=== PATIENT | male | born 1960 | race Hispanic/Latino ===

== ENCOUNTER 2021-06-04 23:15 | Inpatient (IN) | payer MEDICARE ==
[2021-06-04] MEDS ORDERED: Diltiazem 125 MG/25 ML ONE (23:23)
[2021-06-05 00:08] LABS: #Basophils 0.1 10x3/uL (0.0-0.2); #Eosinphils 0.5 10x3/uL (0.0-0.5); #Monocytes 1.3 10x3/uL (0.0-1.1); #Neutrophils 6.9 10x3/uL (1.5-8.4); %Eosinophils 4.5 % (0.0-6.0); %Lymphocytes 22.2 % (18.0-47.0); %Monocytes 11.2 % (0.0-10.0); %Neutrophils 60.4 % (40.0-75.0); Hemoglobin 12.9 g/dL (13.5-17.5); Mean Corpuscular HGB CONC 32.7 g/dL (32.0-36.0); Mean Corpuscular Hemoglobin 29.9 pg (27.0-33.0); Mean Corpuscular Volume 91.4 fl (81.2-95.1); Mean Platelet Volume 11.6 fl (7.4-10.4); Platelet Count 241 10x3/uL (150-450); Red Blood Cell (RBC) Count 4.32 10x6/uL (4.32-5.72); White Blood Cell (WBC) Count 11.4 10x3/uL (3.5-10.5)
[2021-06-05 00:12] LABS: ALT (SGPT) 16 U/L (8-55); AST (SGOT) 23 U/L (5-34); Albumin 3.4 g/dL (3.5-5.0); Alkaline Phosphatase 94 U/L (40-110); Anion Gap 18 mmol/L (10-20); BUN (Urea Nitrogen) 39 mg/dL (8.4-25.7); Bilirubin, Total 0.4 mg/dL (0.2-1.2); Calc. Creatinine Clearance 0 mL/min (70-130); Calcium 9.3 mg/dL (7.8-10.44); Carbon Dioxide 17 mmol/L (22-29); Chloride 112 mmol/L (98-107); Globulin 2.8 g/dL (2.4-3.5); Glucose 289 mg/dL (70-105); Potassium 3.5 mmol/L (3.5-5.1); Protein, Total 6.2 g/dL (6.0-8.3); Sodium 143 mmol/L (136-145)
[2021-06-05] MEDS ORDERED: Amiodarone In Dextrose 200 ML ONE (00:38)
[2021-06-05 00:39] LABS: CKMB 3.1 ng/mL (0-6.6)
[2021-06-05] MEDS ORDERED: Calcium Carbonate 500 MG ChewTAB PO PRN (00:52)
[2021-06-05] MEDS ORDERED: Guaifenesin DM 100-10/5 ML UDCUP PO PRN (00:52)
[2021-06-05] MEDS ORDERED: Acetaminophen 325 MG TAB PO PRN (00:52)
[2021-06-05] MEDS ORDERED: Senokot S 8.6-50 MG TAB PO PRN (00:52)
[2021-06-05] MEDS ORDERED: Dextrose 5% in Water 1,000 ML IV PRN (00:52)
[2021-06-05] MEDS ORDERED: Dextrose 50% Abboject 50 ML SYRINGE SLOW IVP PRN (00:52)
[2021-06-05 01:25] LABS: Hemoglobin 12.8 g/dL (13.5-17.5); Platelet Count 224 10x3/uL (150-450)
[2021-06-05 01:37] LABS: INR-International Normal Ratio 0.9; PTT 23.9 sec (22.0-33.0); Prothrombin Time 10.3 sec (9.5-12.1)
[2021-06-05] MEDS ORDERED: Metoprolol Tartrate 5 MG/5 ML VIAL IVP PRN (01:41)
[2021-06-05] MEDS ORDERED: Amiodarone 450 MG in Dextrose 5% in Water 250 ML IVPB SCH (01:45)
[2021-06-05] MEDS ORDERED: Furosemide 20 MG/2 ML VIAL SLOW IVP SCH (03:00)
[2021-06-05] MEDS ORDERED: Potassium Chloride 20 MEQ TAB PO SCH ×2 (03:00→04:00)
[2021-06-05] MEDS: Heparin 25,000 units/D5W 500 ML IVPB SCH (03:17)
[2021-06-05] MEDS: Heparin 10,000 UNITS/ 10 ML VIAL SLOW IVP SCH (03:23)
[2021-06-05] MEDS ORDERED: FLU VACC QS2021-22(6MOS UP)/PF 60 MCG/0.5 ML SYRINGE IM ONE (03:45)
[2021-06-05 04:14] LABS: SARS-CoV-2 NAA Rapid Test Not Detected (NotDetected)
[2021-06-05 04:21] LABS: Bilirubin Neg (Negative); Blood, Urine 250 (Negative); Clarity Cloudy (Clear); Glucose, Urine (Dipstick) >=1000 mg/dL (Negative); Ketone, Urine Negative (Negative); Leukocyte Negative (Negative); Nitrite Negative (Negative); Protein, Urine (Dipstick) 500 mg/dl (Neg-Trace); Urobilinogen Normal mg/dL (Less than 2)
[2021-06-05] MEDS: HumaLOG 300 UNITS/3 ML VIAL SC PRN ×4 (04:39→22:07)
[2021-06-05 04:57] LABS: Bacteria/HPF 4+ HPF (None Seen); RBC/HPF 0-3 HPF (0-3); Squamous Epithelial 0-3 HPF (0-3); Transitional Epithelial 0-3 HPF (None Seen)
[2021-06-05] MEDS: Amiodarone In Dextrose 200 ML IVPB SCH ×2 (05:49→17:02)
[2021-06-05 05:55] LABS: #Basophils 0.1 10x3/uL (0.0-0.2); #Eosinphils 0.2 10x3/uL (0.0-0.5); #Monocytes 0.9 10x3/uL (0.0-1.1); #Neutrophils 9.5 10x3/uL (1.5-8.4); %Basophils 0.5 % (0.0-2.0); %Eosinophils 1.2 % (0.0-6.0); %Lymphocytes 11.5 % (18.0-47.0); %Monocytes 7.7 % (0.0-10.0); %Neutrophils 78.5 % (40.0-75.0); Hemoglobin 12.6 g/dL (13.5-17.5); Mean Corpuscular HGB CONC 32.5 g/dL (32.0-36.0); Mean Corpuscular Hemoglobin 29.6 pg (27.0-33.0); Mean Corpuscular Volume 91.3 fl (81.2-95.1); Mean Platelet Volume 11.6 fl (7.4-10.4); Platelet Count 229 10x3/uL (150-450); RBC Distribution Width 15.1 % (11.5-14.5); Red Blood Cell (RBC) Count 4.25 10x6/uL (4.32-5.72); White Blood Cell (WBC) Count 12.1 10x3/uL (3.5-10.5)
[2021-06-05 06:14] LABS: ALT (SGPT) 22 U/L (8-55); AST (SGOT) 92 U/L (5-34); Albumin 3.3 g/dL (3.5-5.0); Alkaline Phosphatase 94 U/L (40-110); Anion Gap 17 mmol/L (10-20); BUN (Urea Nitrogen) 37 mg/dL (8.4-25.7); Bilirubin, Total 0.3 mg/dL (0.2-1.2); Calc. Creatinine Clearance 24 mL/min (70-130); Calcium 9.5 mg/dL (7.8-10.44); Carbon Dioxide 17 mmol/L (22-29); Chloride 113 mmol/L (98-107); Glucose 261 mg/dL (70-105); Potassium 3.8 mmol/L (3.5-5.1); Protein, Total 6.3 g/dL (6.0-8.3); Sodium 143 mmol/L (136-145)
[2021-06-05 06:26] LABS: CKMB 70.1 ng/mL (0-6.6)
[2021-06-05] MEDS: hydrALAZINE 25 MG TAB PO SCH ×3 (08:51→16:45)
[2021-06-05] MEDS: Cholecalciferol 1,000 UNITS (25 MCG) TAB PO SCH (08:51)
[2021-06-05] MEDS: Sevelamer Carbonate 800 MG TAB PO SCH ×3 (08:51→16:45)
[2021-06-05] MEDS: Famotidine 20 MG TAB PO SCH (08:53)
[2021-06-05] MEDS: Carvedilol 3.125 MG TAB PO SCH ×2 (08:53→16:46)
[2021-06-05] MEDS: Fenofibrate Nanocrystallized 145 MG TAB PO SCH (08:56)
[2021-06-05] MEDS: Tamsulosin HCl 0.4 MG CAP PO SCH (08:59)
[2021-06-05] MEDS: Torsemide 20 MG TAB PO SCH ×2 (09:00→14:10)
[2021-06-05] MEDS: Gabapentin 300 MG CAP PO SCH ×2 (09:01→21:03)
[2021-06-05 09:45] LABS: CKMB 74.3 ng/mL (0-6.6)
[2021-06-05] MEDS: Lantus 1000 UNITS/10 ML VIAL SC SCH (21:05)
[2021-06-05] MEDS: Atorvastatin Calcium 40 MG TAB PO SCH (21:07)
[2021-06-06] MEDS: Heparin 10,000 UNITS/ 10 ML VIAL SLOW IVP SCH (00:48)
[2021-06-06] MEDS: Heparin 25,000 units/D5W 500 ML IVPB SCH ×2 (01:42→18:00)
[2021-06-06] MEDS: Amiodarone In Dextrose 200 ML IVPB SCH ×2 (06:10→18:02)
[2021-06-06 06:40] LABS: Hemoglobin 12.5 g/dL (13.5-17.5); Mean Corpuscular Hemoglobin 29.6 pg (27.0-33.0); Mean Corpuscular Volume 89.6 fl (81.2-95.1); Mean Platelet Volume 11.6 fl (7.4-10.4); Platelet Count 210 10x3/uL (150-450); RBC Distribution Width 15.1 % (11.5-14.5); Red Blood Cell (RBC) Count 4.23 10x6/uL (4.32-5.72)
[2021-06-06 06:47] LABS: Anion Gap 13 mmol/L (10-20); Calcium 9.1 mg/dL (7.8-10.44); Carbon Dioxide 21 mmol/L (22-29); Chloride 105 mmol/L (98-107); Potassium 3.4 mmol/L (3.5-5.1); Sodium 136 mmol/L (136-145)
[2021-06-06 07:00] LABS: BUN (Urea Nitrogen) 34 mg/dL (8.4-25.7); Calc. Creatinine Clearance 23 mL/min (70-130); Glucose 113 mg/dL (70-105)
[2021-06-06 07:01] LABS: PTT 86.7 sec (22.0-33.0)
[2021-06-06] MEDS: hydrALAZINE 25 MG TAB PO SCH ×3 (08:18→16:15)
[2021-06-06] MEDS: Famotidine 20 MG TAB PO SCH (08:18)
[2021-06-06] MEDS: Sevelamer Carbonate 800 MG TAB PO SCH ×3 (08:19→18:00)
[2021-06-06] MEDS: Tamsulosin HCl 0.4 MG CAP PO SCH (08:19)
[2021-06-06] MEDS: Carvedilol 3.125 MG TAB PO SCH ×2 (08:19→16:15)
[2021-06-06] MEDS: Cholecalciferol 1,000 UNITS (25 MCG) TAB PO SCH (08:19)
[2021-06-06] MEDS: Torsemide 20 MG TAB PO SCH ×2 (08:26→16:15)
[2021-06-06] MEDS: Fenofibrate Nanocrystallized 145 MG TAB PO SCH (08:28)
[2021-06-06] MEDS ORDERED: Potassium Chloride 20 MEQ TAB PO SCH ×2 (09:30→20:30)
[2021-06-06] MEDS: Gabapentin 300 MG CAP PO SCH ×2 (10:17→20:43)
[2021-06-06] MEDS: HumaLOG 300 UNITS/3 ML VIAL SC PRN ×2 (10:47→12:34)
[2021-06-06 12:49] LABS: PTT 76.1 sec (22.0-33.0)
[2021-06-06] MEDS: Atorvastatin Calcium 40 MG TAB PO SCH (20:43)
[2021-06-06] MEDS: Lantus 1000 UNITS/10 ML VIAL SC SCH (20:44)
[2021-06-06] MEDS: Amiodarone 200 MG TAB PO SCH (21:57)
[2021-06-07 04:22] LABS: Hemoglobin 11.3 g/dL (13.5-17.5); Platelet Count 198 10x3/uL (150-450)
[2021-06-07 04:41] LABS: PTT 95.7 sec (22.0-33.0)
[2021-06-07 10:05] LABS: ALT (SGPT) 32 U/L (8-55); AST (SGOT) 101 U/L (5-34); Albumin 3.3 g/dL (3.5-5.0); Alkaline Phosphatase 45 U/L (40-110); Anion Gap 17 mmol/L (10-20); BUN (Urea Nitrogen) 34 mg/dL (8.4-25.7); Bilirubin, Total 0.4 mg/dL (0.2-1.2); Calc. Creatinine Clearance 22 mL/min (70-130); Calcium 9.4 mg/dL (7.8-10.44); Carbon Dioxide 20 mmol/L (22-29); Chloride 106 mmol/L (98-107); Globulin 3.1 g/dL (2.4-3.5); Glucose 100 mg/dL (70-105); Protein, Total 6.4 g/dL (6.0-8.3); Sodium 139 mmol/L (136-145)
[2021-06-07] MEDS: Sevelamer Carbonate 800 MG TAB PO SCH ×3 (10:08→17:32)
[2021-06-07] MEDS: Fenofibrate Nanocrystallized 145 MG TAB PO SCH (10:08)
[2021-06-07] MEDS: Torsemide 20 MG TAB PO SCH ×2 (10:08→17:32)
[2021-06-07] MEDS: hydrALAZINE 25 MG TAB PO SCH ×3 (10:09→17:33)
[2021-06-07] MEDS: Tamsulosin HCl 0.4 MG CAP PO SCH (10:09)
[2021-06-07] MEDS: Cholecalciferol 1,000 UNITS (25 MCG) TAB PO SCH (10:09)
[2021-06-07] MEDS: Carvedilol 3.125 MG TAB PO SCH ×2 (10:09→17:32)
[2021-06-07] MEDS: Famotidine 20 MG TAB PO SCH (10:09)
[2021-06-07] MEDS: Gabapentin 300 MG CAP PO SCH ×2 (10:09→22:12)
[2021-06-07] MEDS: Amiodarone 200 MG TAB PO SCH ×2 (10:12→22:13)
[2021-06-07 11:02] LABS: Anion Gap 14 mmol/L (10-20); BUN (Urea Nitrogen) 34 mg/dL (8.4-25.7); Calc. Creatinine Clearance 21 mL/min (70-130); Calcium 9.6 mg/dL (7.8-10.44); Carbon Dioxide 23 mmol/L (22-29); Chloride 105 mmol/L (98-107); Glucose 129 mg/dL (70-105); Potassium 3.8 mmol/L (3.5-5.1); Sodium 138 mmol/L (136-145)
[2021-06-07] MEDS: Apixaban 5 MG TAB PO SCH (22:08)
[2021-06-07] MEDS: Atorvastatin Calcium 40 MG TAB PO SCH (22:12)
[2021-06-07] MEDS: Lantus 1000 UNITS/10 ML VIAL SC SCH (22:13)
[2021-06-07 23:38] LABS: Bilirubin Neg (Negative); Blood, Urine 250 (Negative); Clarity Cloudy (Clear); Glucose, Urine (Dipstick) 100 mg/dL (Negative); Ketone, Urine Negative (Negative); Leukocyte 100 (Negative); Nitrite Negative (Negative); Protein, Urine (Dipstick) 500 mg/dl (Neg-Trace); Urobilinogen Normal mg/dL (Less than 2)
[2021-06-08 08:47] LABS: Hemoglobin 11.3 g/dL (13.5-17.5); Mean Corpuscular HGB CONC 32.8 g/dL (32.0-36.0); Mean Corpuscular Hemoglobin 29.5 pg (27.0-33.0); Mean Corpuscular Volume 89.8 fl (81.2-95.1); Mean Platelet Volume 11.5 fl (7.4-10.4); Platelet Count 211 10x3/uL (150-450); RBC Distribution Width 15.3 % (11.5-14.5); Red Blood Cell (RBC) Count 3.83 10x6/uL (4.32-5.72); White Blood Cell (WBC) Count 10.6 10x3/uL (3.5-10.5)
[2021-06-08 08:51] LABS: Anion Gap 14 mmol/L (10-20); BUN (Urea Nitrogen) 43 mg/dL (8.4-25.7); Calc. Creatinine Clearance 18 mL/min (70-130); Calcium 9.4 mg/dL (7.8-10.44); Carbon Dioxide 23 mmol/L (22-29); Chloride 107 mmol/L (98-107); Glucose 89 mg/dL (70-105); Potassium 3.8 mmol/L (3.5-5.1); Sodium 140 mmol/L (136-145)
[2021-06-08] MEDS ORDERED: Apixaban 2.5 MG TAB PO SCH ×2 (09:15→21:00)
[2021-06-08] MEDS: Apixaban 5 MG TAB PO SCH (09:16)
[2021-06-08] MEDS: Gabapentin 300 MG CAP PO SCH ×2 (09:19→21:04)
[2021-06-08] MEDS: Sevelamer Carbonate 800 MG TAB PO SCH ×3 (09:20→16:11)
[2021-06-08] MEDS: hydrALAZINE 25 MG TAB PO SCH ×3 (09:20→16:11)
[2021-06-08] MEDS: Carvedilol 3.125 MG TAB PO SCH ×2 (09:20→16:11)
[2021-06-08] MEDS: Famotidine 20 MG TAB PO SCH (09:21)
[2021-06-08] MEDS: Cholecalciferol 1,000 UNITS (25 MCG) TAB PO SCH (09:23)
[2021-06-08] MEDS: Amiodarone 200 MG TAB PO SCH ×2 (09:23→21:04)
[2021-06-08] MEDS: Torsemide 20 MG TAB PO SCH ×2 (09:24→14:57)
[2021-06-08] MEDS: Fenofibrate Nanocrystallized 145 MG TAB PO SCH (09:24)
[2021-06-08] MEDS: Tamsulosin HCl 0.4 MG CAP PO SCH (09:24)
[2021-06-08] MEDS: HumaLOG 300 UNITS/3 ML VIAL SC PRN (12:36)
[2021-06-08] MEDS: Atorvastatin Calcium 40 MG TAB PO SCH (21:03)
[2021-06-08] MEDS: Lantus 1000 UNITS/10 ML VIAL SC SCH (21:04)
[2021-06-09 01:24] LABS: Hemoglobin 11.6 g/dL (13.5-17.5); Platelet Count 215 10x3/uL (150-450)
[2021-06-09 05:28] LABS: Anion Gap 16 mmol/L (10-20); BUN (Urea Nitrogen) 53 mg/dL (8.4-25.7); Calc. Creatinine Clearance 16 mL/min (70-130); Carbon Dioxide 21 mmol/L (22-29); Chloride 106 mmol/L (98-107); Glucose 93 mg/dL (70-105); Potassium 4.1 mmol/L (3.5-5.1); Sodium 139 mmol/L (136-145)
[2021-06-09 05:39] LABS: Hep B Surf Ag Non-Reactive S/CO (NonReactive)
[2021-06-09 05:44] LABS: HBSAg Index 0.19 S/CO (0-0.99)
[2021-06-09] MEDS ORDERED: Tuberculin PPD 0.1 ML VIAL I-DERMAL SCH ×2 (10:00→11:30)
[2021-06-09] MEDS: Sevelamer Carbonate 800 MG TAB PO SCH ×4 (10:56→20:49)
[2021-06-09] MEDS: Famotidine 20 MG TAB PO SCH (10:56)
[2021-06-09] MEDS: Tamsulosin HCl 0.4 MG CAP PO SCH (10:56)
[2021-06-09] MEDS: Carvedilol 3.125 MG TAB PO SCH ×2 (10:56→18:37)
[2021-06-09] MEDS: hydrALAZINE 25 MG TAB PO SCH ×3 (10:56→18:37)
[2021-06-09] MEDS: Torsemide 20 MG TAB PO SCH (10:57)
[2021-06-09] MEDS: Fenofibrate Nanocrystallized 145 MG TAB PO SCH (10:57)
[2021-06-09] MEDS: Cholecalciferol 1,000 UNITS (25 MCG) TAB PO SCH (10:57)
[2021-06-09] MEDS: Gabapentin 300 MG CAP PO SCH ×2 (10:57→20:49)
[2021-06-09] MEDS: Amiodarone 200 MG TAB PO SCH ×2 (10:57→20:50)
[2021-06-09 12:43] LABS: HBSAB Concentration Less than 8.00 mIU/mL; Hep B Core Total Ab Non-Reactive (NonReactive); Hep B Core Total Index 0.02 S/CO (0-0.79); Hep B Surf AB Non-Reactive (NonReactive); Hep C IgG Ab Non-Reactive (NonReactive); Hep C Index 0.05 S/CO (0-0.79)
[2021-06-09] MEDS ORDERED: EPINEPHrine 1 MG/ML AMP ONE (14:10)
[2021-06-09] MEDS ORDERED: Bupivacaine PF 0.5% 30 ML VIAL ONE (14:10)
[2021-06-09] MEDS ORDERED: Midazolam HCl 2 mg/2 ml Vial ONE (14:56)
[2021-06-09] MEDS ORDERED: CEFAZOLIN 1 GM VIAL ONE (15:02)
[2021-06-09] MEDS ORDERED: HYDROcodone/Acetaminophen 5/325 mg Tablet PO PRN (16:39)
[2021-06-09] MEDS: Atorvastatin Calcium 40 MG TAB PO SCH (20:49)
[2021-06-09] MEDS: Lantus 1000 UNITS/10 ML VIAL SC SCH (20:52)
[2021-06-10 00:17] VITALS: BMI 30.8
[2021-06-10] MEDS: HumaLOG 300 UNITS/3 ML VIAL SC PRN ×2 (05:15→11:41)
[2021-06-10 06:32] LABS: Anion Gap 16 mmol/L (10-20); BUN (Urea Nitrogen) 46 mg/dL (8.4-25.7); Calc. Creatinine Clearance 18 mL/min (70-130); Calcium 8.9 mg/dL (7.8-10.44); Carbon Dioxide 23 mmol/L (22-29); Chloride 107 mmol/L (98-107); Glucose 153 mg/dL (70-105); Potassium 4.7 mmol/L (3.5-5.1); Sodium 141 mmol/L (136-145)
[2021-06-10] MEDS: Tamsulosin HCl 0.4 MG CAP PO SCH (09:13)
[2021-06-10] MEDS: Famotidine 20 MG TAB PO SCH (09:13)
[2021-06-10] MEDS: Sevelamer Carbonate 800 MG TAB PO SCH ×3 (09:13→17:17)
[2021-06-10] MEDS: Fenofibrate Nanocrystallized 145 MG TAB PO SCH (09:13)
[2021-06-10] MEDS: Gabapentin 300 MG CAP PO SCH (09:13)
[2021-06-10] MEDS: Cholecalciferol 1,000 UNITS (25 MCG) TAB PO SCH (09:13)
[2021-06-10] MEDS: Amiodarone 200 MG TAB PO SCH ×2 (09:13→21:56)
[2021-06-10] MEDS: Carvedilol 3.125 MG TAB PO SCH ×2 (09:14→17:16)
[2021-06-10] MEDS: hydrALAZINE 25 MG TAB PO SCH ×3 (09:14→17:16)
[2021-06-10] MEDS: Atorvastatin Calcium 40 MG TAB PO SCH (21:56)
[2021-06-10] MEDS: Losartan 25 MG TAB PO SCH (21:56)
[2021-06-10] MEDS: Apixaban 2.5 MG TAB PO SCH (21:57)
[2021-06-10] MEDS: Lantus 1000 UNITS/10 ML VIAL SC SCH (21:59)
[2021-06-11 01:26] LABS: Hemoglobin 11.2 g/dL (13.5-17.5); Platelet Count 193 10x3/uL (150-450)
[2021-06-11 06:17] LABS: Anion Gap 14 mmol/L (10-20); BUN (Urea Nitrogen) 32 mg/dL (8.4-25.7); Calc. Creatinine Clearance 24 mL/min (70-130); Calcium 8.6 mg/dL (7.8-10.44); Carbon Dioxide 24 mmol/L (22-29); Chloride 105 mmol/L (98-107); Glucose 117 mg/dL (70-105); Sodium 139 mmol/L (136-145)
[2021-06-11] MEDS: Tamsulosin HCl 0.4 MG CAP PO SCH (08:42)
[2021-06-11] MEDS: Famotidine 20 MG TAB PO SCH (08:42)
[2021-06-11] MEDS: Amiodarone 200 MG TAB PO SCH ×2 (08:42→21:58)
[2021-06-11] MEDS: Gabapentin 300 MG CAP PO SCH (08:43)
[2021-06-11] MEDS: Cholecalciferol 1,000 UNITS (25 MCG) TAB PO SCH (08:43)
[2021-06-11] MEDS: Apixaban 2.5 MG TAB PO SCH ×2 (08:43→21:58)
[2021-06-11] MEDS: Sevelamer Carbonate 800 MG TAB PO SCH ×3 (08:43→17:47)
[2021-06-11] MEDS: hydrALAZINE 25 MG TAB PO SCH ×3 (08:43→17:47)
[2021-06-11] MEDS: Carvedilol 3.125 MG TAB PO SCH ×2 (08:43→17:47)
[2021-06-11] MEDS: Fenofibrate Nanocrystallized 145 MG TAB PO SCH (08:44)
[2021-06-11] MEDS ORDERED: READ PPD TEST SITE PO SCH ×2 (09:00)
[2021-06-11] MEDS: HumaLOG 300 UNITS/3 ML VIAL SC PRN (18:19)
[2021-06-11] MEDS: Losartan 25 MG TAB PO SCH (21:59)
[2021-06-11] MEDS: Atorvastatin Calcium 40 MG TAB PO SCH (21:59)
[2021-06-11] MEDS: Lantus 1000 UNITS/10 ML VIAL SC SCH (22:00)
[2021-06-12 07:02] LABS: #Basophils 0.1 10x3/uL (0.0-0.2); #Eosinphils 0.4 10x3/uL (0.0-0.5); #Monocytes 1.2 10x3/uL (0.0-1.1); #Neutrophils 6.1 10x3/uL (1.5-8.4); %Eosinophils 3.9 % (0.0-6.0); %Lymphocytes 14.7 % (18.0-47.0); %Monocytes 12.7 % (0.0-10.0); %Neutrophils 67.1 % (40.0-75.0); Hemoglobin 11.2 g/dL (13.5-17.5); Mean Corpuscular HGB CONC 32.5 g/dL (32.0-36.0); Mean Corpuscular Hemoglobin 29.4 pg (27.0-33.0); Mean Corpuscular Volume 90.6 fl (81.2-95.1); Mean Platelet Volume 11.2 fl (7.4-10.4); Platelet Count 217 10x3/uL (150-450); RBC Distribution Width 15.2 % (11.5-14.5); Red Blood Cell (RBC) Count 3.81 10x6/uL (4.32-5.72)
[2021-06-12 07:43] LABS: ALT (SGPT) 9 U/L (8-55); AST (SGOT) 20 U/L (5-34); Albumin 3.1 g/dL (3.5-5.0); Alkaline Phosphatase 60 U/L (40-110); Anion Gap 17 mmol/L (10-20); BUN (Urea Nitrogen) 52 mg/dL (8.4-25.7); Bilirubin, Total 0.4 mg/dL (0.2-1.2); Calc. Creatinine Clearance 16 mL/min (70-130); Calcium 8.7 mg/dL (7.8-10.44); Carbon Dioxide 21 mmol/L (22-29); Chloride 108 mmol/L (98-107); Globulin 2.4 g/dL (2.4-3.5); Glucose 164 mg/dL (70-105); Magnesium 2.2 mg/dL (1.6-2.6); Potassium 4.3 mmol/L (3.5-5.1); Protein, Total 5.5 g/dL (6.0-8.3); Sodium 142 mmol/L (136-145)
[2021-06-12] MEDS: hydrALAZINE 25 MG TAB PO SCH ×3 (08:48→17:23)
[2021-06-12] MEDS: Amiodarone 200 MG TAB PO SCH ×2 (08:48→21:25)
[2021-06-12] MEDS: Carvedilol 3.125 MG TAB PO SCH ×2 (08:48→17:23)
[2021-06-12] MEDS: Sevelamer Carbonate 800 MG TAB PO SCH ×3 (08:48→17:23)
[2021-06-12] MEDS: Cholecalciferol 1,000 UNITS (25 MCG) TAB PO SCH (08:48)
[2021-06-12] MEDS: Gabapentin 300 MG CAP PO SCH (08:48)
[2021-06-12] MEDS: Apixaban 2.5 MG TAB PO SCH ×2 (08:48→21:25)
[2021-06-12] MEDS: Famotidine 20 MG TAB PO SCH (08:48)
[2021-06-12] MEDS: Tamsulosin HCl 0.4 MG CAP PO SCH (08:48)
[2021-06-12] MEDS: HumaLOG 300 UNITS/3 ML VIAL SC PRN ×2 (11:41→17:23)
[2021-06-12] MEDS: Atorvastatin Calcium 40 MG TAB PO SCH (21:26)
[2021-06-12] MEDS: Losartan 25 MG TAB PO SCH (21:26)
[2021-06-12] MEDS: Lantus 1000 UNITS/10 ML VIAL SC SCH (21:26)
[2021-06-12 22:38] LABS: SARS-CoV-2 PCR by NAA Not Detected (NotDetected)
[2021-06-13 01:01] LABS: Hemoglobin 11.1 g/dL (13.5-17.5); Platelet Count 221 10x3/uL (150-450)
[2021-06-13] MEDS: Carvedilol 3.125 MG TAB PO SCH ×2 (07:50→18:10)
[2021-06-13] MEDS: hydrALAZINE 25 MG TAB PO SCH ×3 (07:50→18:25)
[2021-06-13] MEDS: Sevelamer Carbonate 800 MG TAB PO SCH ×3 (07:50→18:11)
[2021-06-13] MEDS: Famotidine 20 MG TAB PO SCH (07:50)
[2021-06-13] MEDS: Amiodarone 200 MG TAB PO SCH (07:50)
[2021-06-13] MEDS: Apixaban 2.5 MG TAB PO SCH ×2 (07:50→20:07)
[2021-06-13] MEDS: Cholecalciferol 1,000 UNITS (25 MCG) TAB PO SCH (07:51)
[2021-06-13] MEDS: Gabapentin 300 MG CAP PO SCH (07:51)
[2021-06-13] MEDS: Tamsulosin HCl 0.4 MG CAP PO SCH (07:51)
[2021-06-13 13:43] LABS: Anion Gap 16 mmol/L (10-20); BUN (Urea Nitrogen) 67 mg/dL (8.4-25.7); Calc. Creatinine Clearance 16 mL/min (70-130); Calcium 8.8 mg/dL (7.8-10.44); Carbon Dioxide 20 mmol/L (22-29); Chloride 108 mmol/L (98-107); Glucose 128 mg/dL (70-105); Potassium 4.2 mmol/L (3.5-5.1); Sodium 140 mmol/L (136-145)
[2021-06-13] MEDS ORDERED: Heparin 10,000 UNITS/ 10 ML VIAL SLOW IVP PRN (17:05)
[2021-06-13] MEDS: Losartan 25 MG TAB PO SCH (19:54)
[2021-06-13] MEDS: Atorvastatin Calcium 40 MG TAB PO SCH (20:06)
[2021-06-13] MEDS: Lantus 1000 UNITS/10 ML VIAL SC SCH (20:07)
[2021-06-14 06:34] LABS: Anion Gap 16 mmol/L (10-20); BUN (Urea Nitrogen) 36 mg/dL (8.4-25.7); Calc. Creatinine Clearance 0 mL/min (70-130); Calcium 8.4 mg/dL (7.8-10.44); Carbon Dioxide 24 mmol/L (22-29); Chloride 104 mmol/L (98-107); Glucose 89 mg/dL (70-105); Potassium 4.2 mmol/L (3.5-5.1); Sodium 140 mmol/L (136-145)
[2021-06-14] MEDS ORDERED: Amiodarone 200 MG TAB PO SCH (09:00)
[2021-06-14] MEDS: Sevelamer Carbonate 800 MG TAB PO SCH ×2 (09:47→12:27)
[2021-06-14] MEDS: Gabapentin 300 MG CAP PO SCH (09:48)
[2021-06-14] MEDS: Carvedilol 3.125 MG TAB PO SCH (09:49)
[2021-06-14] MEDS: hydrALAZINE 25 MG TAB PO SCH ×2 (09:50→12:27)
[2021-06-14] MEDS: Apixaban 2.5 MG TAB PO SCH (09:50)
[2021-06-14] MEDS: Famotidine 20 MG TAB PO SCH (09:51)
[2021-06-14] MEDS: Cholecalciferol 1,000 UNITS (25 MCG) TAB PO SCH (09:51)
[2021-06-14] MEDS: Tamsulosin HCl 0.4 MG CAP PO SCH (09:52)
[2021-06-14 12:36] VITALS: BP 99/50; TEMP 98.4
== END 2021-06-14 13:36 | disposition home or self-care (01) | DRG 291 ==
LOC: CSHERS 23:15 → CSHICU 06-05 02:36 → CSHTELE 06-06 17:42
PROVIDERS: ADMIT Student in an Organized Health Care Education/Training Program; ATTEND Internal Medicine
PROC: 0JH63XZ Insertion of Tunneled Vascular Access Device into Chest Subcutaneous Tissue and Fascia, Percutaneous Approach (ICD-10-PCS; principal; 2021-06-09)
PROC: 02HV33Z Insertion of Infusion Device into Superior Vena Cava, Percutaneous Approach (ICD-10-PCS; 2021-06-09)
PROC: B548ZZA Ultrasonography of Superior Vena Cava, Guidance (ICD-10-PCS; 2021-06-09)
PROC: 5A1D70Z Performance of Urinary Filtration, Intermittent, Less than 6 Hours Per Day (ICD-10-PCS; 2021-06-10)
DX: I13.2 Hypertensive heart and chronic kidney disease with heart failure and with stage 5 chronic kidney disease, or end stage renal disease (principal); I50.23 Acute on chronic systolic (congestive) heart failure; N18.6 End stage renal disease; T82.199A Other mechanical complication of unspecified cardiac device, initial encounter; N17.9 Acute kidney failure, unspecified; E87.2 Acidosis; I47.2 Ventricular tachycardia; I48.91 Unspecified atrial fibrillation; Z20.822 Contact with and (suspected) exposure to COVID-19; Z79.01 Long term (current) use of anticoagulants; Z79.4 Long term (current) use of insulin; Z79.899 Other long term (current) drug therapy; Z95.1 Presence of aortocoronary bypass graft; Z89.511 Acquired absence of right leg below knee; Z87.891 Personal history of nicotine dependence; E11.22 Type 2 diabetes mellitus with diabetic chronic kidney disease; G40.909 Epilepsy, unspecified, not intractable, without status epilepticus; E11.51 Type 2 diabetes mellitus with diabetic peripheral angiopathy without gangrene; I25.10 Atherosclerotic heart disease of native coronary artery without angina pectoris; D63.1 Anemia in chronic kidney disease; E78.2 Mixed hyperlipidemia; E11.40 Type 2 diabetes mellitus with diabetic neuropathy, unspecified; E87.6 Hypokalemia; E88.09 Other disorders of plasma-protein metabolism, not elsewhere classified
CPT/HCPCS: 36415; 36416; 71045; 80048; 80053; 81001; 81003; 82553; 83735; 84443; 84484; 85014; 85018; 85025; 85027; 85049; 85610; 85730; 86580; 86704; 86706; 86803; 87340; 90935; 93005; 93010; 93306; 94760; 96365; 96375; C1752; G0257; J0171; J0282; J0690; J1642; J1644; J1815; J1940; J2250; S0020; U0002; U0003; U0005

== ENCOUNTER 2021-08-30 20:03 | Inpatient (IN) | payer MEDICARE ==
[2021-08-30 21:13] LABS: #Basophils 0.1 10x3/uL (0.0-0.2); #Eosinphils 0.2 10x3/uL (0.0-0.5); #Monocytes 1.3 10x3/uL (0.0-1.1); #Neutrophils 8.3 10x3/uL (1.5-8.4); %Basophils 0.7 % (0.0-2.0); %Eosinophils 1.6 % (0.0-6.0); %Lymphocytes 5.3 % (18.0-47.0); %Monocytes 12.5 % (0.0-10.0); %Neutrophils 79.4 % (40.0-75.0); Hemoglobin 11.8 g/dL (13.5-17.5); Mean Corpuscular HGB CONC 33.1 g/dL (32.0-36.0); Mean Corpuscular Hemoglobin 31.6 pg (27.0-33.0); Mean Corpuscular Volume 95.5 fl (81.2-95.1); Platelet Count 213 10x3/uL (150-450); RBC Distribution Width 14.6 % (11.5-14.5); Red Blood Cell (RBC) Count 3.74 10x6/uL (4.32-5.72); White Blood Cell (WBC) Count 10.5 10x3/uL (3.5-10.5)
[2021-08-30 21:29] LABS: ALT (SGPT) 31 U/L (8-55); AST (SGOT) 72 U/L (5-34); Albumin 4.1 g/dL (3.5-5.0); Alkaline Phosphatase 60 U/L (40-110); Anion Gap 14 mmol/L (10-20); BUN (Urea Nitrogen) 37 mg/dL (8.4-25.7); Bilirubin, Total 0.4 mg/dL (0.2-1.2); CK (CPK) 143 U/L (30-200); Calc. Creatinine Clearance 0 mL/min (70-130); Calcium 8.7 mg/dL (7.8-10.44); Carbon Dioxide 26 mmol/L (22-29); Chloride 104 mmol/L (98-107); Globulin 3.3 g/dL (2.4-3.5); Glucose 170 mg/dL (70-105); Magnesium 1.8 mg/dL (1.6-2.6); Potassium 4.6 mmol/L (3.5-5.1); Protein, Total 7.4 g/dL (6.0-8.3); Sodium 139 mmol/L (136-145)
[2021-08-30 21:55] LABS: CKMB 8.4 ng/mL (0-6.6)
[2021-08-30 23:25] LABS: Bilirubin Neg (Negative); Blood, Urine 50 (Negative); Clarity Clear (Clear); Glucose, Urine (Dipstick) 100 mg/dL (Negative); Ketone, Urine Negative (Negative); Leukocyte 25 (Negative); Nitrite Negative (Negative); Protein, Urine (Dipstick) 500 mg/dl (Neg-Trace); Urobilinogen Normal mg/dL (Less than 2)
[2021-08-30 23:41] LABS: RBC/HPF 0-3 HPF (0-3)
[2021-08-30 23:42] LABS: Bacteria/HPF Rare-Few HPF (None Seen); Sperm/HPF Rare HPF (None Seen); Squamous Epithelial 0-3 HPF (0-3)
[2021-08-31] MEDS ORDERED: Nitroglycerin 0.4 MG TAB (25 Tab Bottle) SL PRN (01:05)
[2021-08-31] MEDS ORDERED: Acetaminophen 325 MG TAB PO PRN (01:12)
[2021-08-31] MEDS ORDERED: Apixaban 2.5 MG TAB PO SCH ×2 (01:15→09:00)
[2021-08-31 01:27] LABS: SARS-CoV-2 NAA Rapid Test DETECTED (NotDetected)
[2021-08-31] MEDS ORDERED: Dextrose 50% Abboject 50 ML SYRINGE SLOW IVP PRN (01:44)
[2021-08-31] MEDS ORDERED: Dextrose 5% in Water 1,000 ML IV PRN (01:44)
[2021-08-31 02:06] LABS: Troponin I 6.031 ng/mL (< 0.028)
[2021-08-31] MEDS ORDERED: Apixaban 5 MG TAB ONE (02:23)
[2021-08-31] MEDS ORDERED: Aspirin Chewable 81 MG TAB ONE (02:23)
[2021-08-31] MEDS ORDERED: Dexamethasone 10 MG/ML VIAL ONE (02:23)
[2021-08-31] MEDS ORDERED: Nitroglycerin 2% Ointment 1 INCH/1 GM Packet ONE (02:23)
[2021-08-31] MEDS ORDERED: hydrALAZINE 25 MG TAB ONE ×2 (02:24→10:39)
[2021-08-31] MEDS ORDERED: Atorvastatin Calcium 40 MG TAB PO SCH (03:00)
[2021-08-31] MEDS ORDERED: Furosemide 100 MG/10 ML VIAL SLOW IVP SCH (03:00)
[2021-08-31] MEDS ORDERED: Gabapentin 300 MG CAP PO SCH ×2 (03:00→09:00)
[2021-08-31] MEDS ORDERED: hydrALAZINE 25 MG TAB PO SCH (03:00)
[2021-08-31 03:04] LABS: Hemoglobin 11.3 g/dL (13.5-17.5); Platelet Count 210 10x3/uL (150-450)
[2021-08-31] MEDS ORDERED: Carvedilol 3.125 MG TAB PO SCH (03:15)
[2021-08-31] MEDS ORDERED: Dexamethasone 10 MG/ML VIAL SLOW IVP SCH (03:15)
[2021-08-31] MEDS ORDERED: Heparin 25,000 units/D5W 500 ML ONE (03:38)
[2021-08-31] MEDS ORDERED: Furosemide 100 MG/10 ML VIAL ONE (03:45)
[2021-08-31] MEDS: Heparin 10,000 UNITS/ 10 ML VIAL SLOW IVP SCH (03:46)
[2021-08-31] MEDS: Nitroglycerin 2% Ointment 1 INCH/1 GM Packet TOP SCH ×2 (03:47→21:57)
[2021-08-31] MEDS ORDERED: Carvedilol 3.125 MG TAB ONE ×2 (03:54→10:37)
[2021-08-31] MEDS: Heparin 25,000 units/D5W 500 ML IVPB SCH (04:05)
[2021-08-31 04:38] LABS: #Basophils 0.1 10x3/uL (0.0-0.2); #Eosinphils 0.1 10x3/uL (0.0-0.5); #Monocytes 0.8 10x3/uL (0.0-1.1); #Neutrophils 8.4 10x3/uL (1.5-8.4); %Basophils 0.7 % (0.0-2.0); %Eosinophils 0.6 % (0.0-6.0); %Lymphocytes 4.6 % (18.0-47.0); %Monocytes 8.3 % (0.0-10.0); %Neutrophils 85.4 % (40.0-75.0); Hemoglobin 10.5 g/dL (13.5-17.5); Mean Corpuscular HGB CONC 31.8 g/dL (32.0-36.0); Mean Corpuscular Hemoglobin 30.9 pg (27.0-33.0); Mean Corpuscular Volume 97.1 fl (81.2-95.1); Mean Platelet Volume 11.1 fl (7.4-10.4); Platelet Count 186 10x3/uL (150-450); RBC Distribution Width 14.7 % (11.5-14.5); White Blood Cell (WBC) Count 9.9 10x3/uL (3.5-10.5)
[2021-08-31 04:49] LABS: Anion Gap 16 mmol/L (10-20); BUN (Urea Nitrogen) 41 mg/dL (8.4-25.7); Calc. Creatinine Clearance 0 mL/min (70-130); Calcium 8.6 mg/dL (7.8-10.44); Carbon Dioxide 23 mmol/L (22-29); Chloride 106 mmol/L (98-107); Glucose 126 mg/dL (70-105); Magnesium 1.7 mg/dL (1.6-2.6); Phosphorus 2.5 mg/dL (2.3-4.7); Potassium 4.5 mmol/L (3.5-5.1); Sodium 140 mmol/L (136-145)
[2021-08-31] MEDS ORDERED: Torsemide 20 MG TAB PO SCH (09:00)
[2021-08-31] MEDS ORDERED: Aspirin 81 mg Enteric Coated Tablet PO SCH (09:00)
[2021-08-31 09:46] LABS: PTT 104.7 sec (22.0-33.0)
[2021-08-31] MEDS ORDERED: Famotidine 20 MG TAB ONE (10:35)
[2021-08-31] MEDS ORDERED: Tamsulosin HCl 0.4 MG CAP ONE (10:36)
[2021-08-31] MEDS ORDERED: Zinc Sulfate 220 MG CAP ONE (10:36)
[2021-08-31] MEDS ORDERED: Ascorbic Acid 500 mg Chewable Tablet ONE (10:36)
[2021-08-31] MEDS ORDERED: Gabapentin 300 MG CAP ONE (10:36)
[2021-08-31] MEDS ORDERED: Dexamethasone 20 MG/5 ML VIAL ONE (10:37)
[2021-08-31] MEDS ORDERED: Clopidogrel Bisulfate 75 MG TAB ONE (10:39)
[2021-08-31] MEDS: Ascorbic Acid 500 mg Chewable Tablet PO SCH (10:52)
[2021-08-31] MEDS: hydrALAZINE 25 MG TAB PO SCH (10:52)
[2021-08-31] MEDS: Carvedilol 3.125 MG TAB PO SCH (10:52)
[2021-08-31] MEDS: Clopidogrel Bisulfate 75 MG TAB PO SCH (10:53)
[2021-08-31] MEDS: Famotidine 20 MG TAB PO SCH (10:53)
[2021-08-31] MEDS: Dexamethasone 4 mg/ml Vial SLOW IVP SCH (10:53)
[2021-08-31] MEDS: Zinc Sulfate 220 MG CAP PO SCH (10:56)
[2021-08-31] MEDS: Tamsulosin HCl 0.4 MG CAP PO SCH (10:56)
[2021-08-31] MEDS ORDERED: Heparin 10,000 UNITS/ 10 ML VIAL CATH PRN (11:50)
[2021-08-31] MEDS ORDERED: EPOETIN ALFA-EPBX (ESRD) 3,000 UNIT/ML VIAL IVP PRN (11:54)
[2021-08-31 12:09] LABS: Magnesium 1.8 mg/dL (1.6-2.6); Phosphorus 3.4 mg/dL (2.3-4.7)
[2021-08-31] MEDS ORDERED: Lidocaine 2 gm/D5W 500ML PREMIX BAG ONE (12:30)
[2021-08-31] MEDS ORDERED: Succinylcholine 200 MG/10 ml SYRINGE FS ONE (12:30)
[2021-08-31] MEDS ORDERED: Amiodarone 150 MG/3 ML VIAL ONE (12:30)
[2021-08-31] MEDS ORDERED: Lidocaine 2% PF 100 mg/5 ml Syringe ONE (12:30)
[2021-08-31] MEDS ORDERED: Magnesium 5 GM/10 ML Abboject SYRINGE ONE (12:30)
[2021-08-31] MEDS ORDERED: EPINEPHrine 1 MG/10 ML Abboject SYRINGE ONE (12:30)
[2021-08-31] MEDS ORDERED: Rocuronium Bromide 10 MG/ML (10ML VIAL) ONE (12:30)
[2021-08-31 17:21] VITALS: BMI 25.3
[2021-08-31 18:27] LABS: PTT 103.5 sec (22.0-33.0)
[2021-08-31] MEDS: Gabapentin 100 MG CAP PO SCH (21:56)
[2021-08-31] MEDS: Atorvastatin Calcium 40 MG TAB PO SCH (21:56)
[2021-08-31] MEDS: Losartan 25 MG TAB PO SCH (21:58)
[2021-08-31] MEDS: Lantus 1000 UNITS/10 ML VIAL SC SCH (21:58)
[2021-09-01 02:50] LABS: PTT 135.1 sec (22.0-33.0)
[2021-09-01 03:24] LABS: #Monocytes 1.5 10x3/uL (0.0-1.1); #Neutrophils 9.2 10x3/uL (1.5-8.4); %Basophils 0.2 % (0.0-2.0); %Lymphocytes 7.3 % (18.0-47.0); %Monocytes 12.5 % (0.0-10.0); %Neutrophils 79.2 % (40.0-75.0); Hemoglobin 10.7 g/dL (13.5-17.5); Mean Corpuscular Hemoglobin 31.1 pg (27.0-33.0); Mean Corpuscular Volume 94.2 fl (81.2-95.1); Mean Platelet Volume 11.2 fl (7.4-10.4); Platelet Count 194 10x3/uL (150-450); RBC Distribution Width 14.8 % (11.5-14.5); Red Blood Cell (RBC) Count 3.44 10x6/uL (4.32-5.72); White Blood Cell (WBC) Count 11.7 10x3/uL (3.5-10.5)
[2021-09-01 04:49] LABS: ALT (SGPT) 89 U/L (8-55); AST (SGOT) 187 U/L (5-34); Albumin 3.8 g/dL (3.5-5.0); Alkaline Phosphatase 44 U/L (40-110); Anion Gap 19 mmol/L (10-20); BUN (Urea Nitrogen) 37 mg/dL (8.4-25.7); Bilirubin, Total 0.6 mg/dL (0.2-1.2); CRP (Inflammatory) 4.14 mg/dL (= or < 0.5); Calc. Creatinine Clearance 20 mL/min (70-130); Calcium 9.2 mg/dL (7.8-10.44); Carbon Dioxide 25 mmol/L (22-29); Chloride 99 mmol/L (98-107); Globulin 3.1 g/dL (2.4-3.5); Glucose 148 mg/dL (70-105); Magnesium 1.9 mg/dL (1.6-2.6); Phosphorus 4.8 mg/dL (2.3-4.7); Potassium 4.3 mmol/L (3.5-5.1); Protein, Total 6.9 g/dL (6.0-8.3); Sodium 139 mmol/L (136-145)
[2021-09-01] MEDS: Zinc Sulfate 220 MG CAP PO SCH (09:31)
[2021-09-01] MEDS: Furosemide 100 MG/10 ML VIAL SLOW IVP SCH (09:31)
[2021-09-01] MEDS: Gabapentin 100 MG CAP PO SCH ×2 (09:31→20:27)
[2021-09-01] MEDS: Cholecalciferol 1,000 UNITS (25 MCG) TAB PO SCH ×2 (09:31→09:34)
[2021-09-01] MEDS: Carvedilol 3.125 MG TAB PO SCH ×3 (09:31→17:20)
[2021-09-01] MEDS: Famotidine 20 MG TAB PO SCH (09:32)
[2021-09-01] MEDS: Tamsulosin HCl 0.4 MG CAP PO SCH (09:32)
[2021-09-01] MEDS: Sevelamer Carbonate 800 MG TAB PO SCH ×4 (09:32→17:21)
[2021-09-01] MEDS: Aspirin 81 mg Enteric Coated Tablet PO SCH (09:32)
[2021-09-01] MEDS: Ascorbic Acid 500 mg Chewable Tablet PO SCH (09:33)
[2021-09-01] MEDS: Clopidogrel Bisulfate 75 MG TAB PO SCH (09:33)
[2021-09-01] MEDS: Amiodarone 200 MG TAB PO SCH ×2 (09:33→09:34)
[2021-09-01] MEDS: Dexamethasone 4 mg/ml Vial SLOW IVP SCH (09:33)
[2021-09-01] MEDS: Nitroglycerin 2% Ointment 1 INCH/1 GM Packet TOP SCH ×4 (09:35→20:27)
[2021-09-01] MEDS: Fenofibrate Nanocrystallized 145 MG TAB PO SCH ×2 (09:35→09:48)
[2021-09-01] MEDS: hydrALAZINE 25 MG TAB PO SCH (09:38)
[2021-09-01 11:30] LABS: Troponin I 22.744 ng/mL (< 0.028)
[2021-09-01] MEDS: Heparin 25,000 units/D5W 500 ML IVPB SCH (14:00)
[2021-09-01] MEDS: Atorvastatin Calcium 40 MG TAB PO SCH (20:27)
[2021-09-01] MEDS: Lantus 1000 UNITS/10 ML VIAL SC SCH (20:27)
[2021-09-01] MEDS: Losartan 25 MG TAB PO SCH (20:27)
[2021-09-01] MEDS: Ventolin HFA Inhaler 60 PUFF INHALER INH SCH (23:50)
[2021-09-02 03:36] LABS: #Neutrophils 11.7 10x3/uL (1.5-8.4); %Basophils 0.1 % (0.0-2.0); %Lymphocytes 5.5 % (18.0-47.0); %Monocytes 7.3 % (0.0-10.0); %Neutrophils 86.6 % (40.0-75.0); Hemoglobin 10.8 g/dL (13.5-17.5); Mean Corpuscular HGB CONC 32.9 g/dL (32.0-36.0); Mean Corpuscular Hemoglobin 30.9 pg (27.0-33.0); Mean Platelet Volume 11.3 fl (7.4-10.4); Platelet Count 207 10x3/uL (150-450); RBC Distribution Width 14.7 % (11.5-14.5); Red Blood Cell (RBC) Count 3.49 10x6/uL (4.32-5.72); White Blood Cell (WBC) Count 13.5 10x3/uL (3.5-10.5)
[2021-09-02] MEDS: Ventolin HFA Inhaler 60 PUFF INHALER INH SCH ×5 (03:37→18:22)
[2021-09-02 03:49] LABS: ALT (SGPT) 70 U/L (8-55); AST (SGOT) 114 U/L (5-34); Albumin 3.8 g/dL (3.5-5.0); Alkaline Phosphatase 50 U/L (40-110); Anion Gap 16 mmol/L (10-20); BUN (Urea Nitrogen) 65 mg/dL (8.4-25.7); Bilirubin, Total 0.5 mg/dL (0.2-1.2); Calc. Creatinine Clearance 15 mL/min (70-130); Calcium 8.8 mg/dL (7.8-10.44); Carbon Dioxide 29 mmol/L (22-29); Chloride 98 mmol/L (98-107); Globulin 3.1 g/dL (2.4-3.5); Glucose 193 mg/dL (70-105); Magnesium 2.2 mg/dL (1.6-2.6); Potassium 4.2 mmol/L (3.5-5.1); Protein, Total 6.9 g/dL (6.0-8.3); Sodium 139 mmol/L (136-145)
[2021-09-02] MEDS: Heparin 10,000 UNITS/ 10 ML VIAL SLOW IVP SCH (05:49)
[2021-09-02] MEDS: Nitroglycerin 2% Ointment 1 INCH/1 GM Packet TOP SCH ×2 (05:52→18:23)
[2021-09-02] MEDS: Fenofibrate Nanocrystallized 145 MG TAB PO SCH (11:29)
[2021-09-02] MEDS: Sevelamer Carbonate 800 MG TAB PO SCH ×2 (11:30→18:22)
[2021-09-02] MEDS: Furosemide 100 MG/10 ML VIAL SLOW IVP SCH (11:30)
[2021-09-02] MEDS: Amiodarone 200 MG TAB PO SCH (11:30)
[2021-09-02] MEDS: Clopidogrel Bisulfate 75 MG TAB PO SCH (11:31)
[2021-09-02] MEDS: Ascorbic Acid 500 mg Chewable Tablet PO SCH (11:31)
[2021-09-02] MEDS: Tamsulosin HCl 0.4 MG CAP PO SCH (11:31)
[2021-09-02] MEDS: Gabapentin 100 MG CAP PO SCH ×2 (11:31→20:56)
[2021-09-02] MEDS: Famotidine 20 MG TAB PO SCH (11:32)
[2021-09-02] MEDS: Zinc Sulfate 220 MG CAP PO SCH (11:32)
[2021-09-02] MEDS: Carvedilol 3.125 MG TAB PO SCH ×2 (11:32→18:22)
[2021-09-02] MEDS: Dexamethasone 4 mg/ml Vial SLOW IVP SCH (11:33)
[2021-09-02] MEDS: Cholecalciferol 1,000 UNITS (25 MCG) TAB PO SCH (11:33)
[2021-09-02] MEDS: Aspirin 81 mg Enteric Coated Tablet PO SCH (11:33)
[2021-09-02 13:07] LABS: #Monocytes 0.8 10x3/uL (0.0-1.1); #Neutrophils 13.9 10x3/uL (1.5-8.4); %Basophils 0.1 % (0.0-2.0); %Monocytes 5.2 % (0.0-10.0); %Neutrophils 88.9 % (40.0-75.0); Hemoglobin 11.3 g/dL (13.5-17.5); Mean Corpuscular HGB CONC 32.8 g/dL (32.0-36.0); Mean Corpuscular Hemoglobin 31.1 pg (27.0-33.0); Mean Platelet Volume 11.7 fl (7.4-10.4); Platelet Count 197 10x3/uL (150-450); RBC Distribution Width 14.4 % (11.5-14.5); Red Blood Cell (RBC) Count 3.63 10x6/uL (4.32-5.72); White Blood Cell (WBC) Count 15.7 10x3/uL (3.5-10.5)
[2021-09-02 13:18] LABS: ALT (SGPT) 64 U/L (8-55); AST (SGOT) 99 U/L (5-34); Albumin 3.8 g/dL (3.5-5.0); Alkaline Phosphatase 63 U/L (40-110); Anion Gap 15 mmol/L (10-20); BUN (Urea Nitrogen) 28 mg/dL (8.4-25.7); Bilirubin, Total 0.5 mg/dL (0.2-1.2); Calc. Creatinine Clearance 28 mL/min (70-130); Calcium 9.4 mg/dL (7.8-10.44); Carbon Dioxide 29 mmol/L (22-29); Chloride 96 mmol/L (98-107); Globulin 3.5 g/dL (2.4-3.5); Glucose 176 mg/dL (70-105); Magnesium 3.1 mg/dL (1.6-2.6); Phosphorus 2.9 mg/dL (2.3-4.7); Potassium 3.3 mmol/L (3.5-5.1); Protein, Total 7.3 g/dL (6.0-8.3); Sodium 137 mmol/L (136-145)
[2021-09-02 13:29] LABS: PTT 96.1 sec (22.0-33.0)
[2021-09-02] MEDS: Atorvastatin Calcium 40 MG TAB PO SCH (20:56)
[2021-09-02] MEDS: Losartan 25 MG TAB PO SCH (20:56)
[2021-09-02] MEDS ORDERED: Ventolin HFA Inhaler 60 PUFF INHALER INH PRN (21:50)
[2021-09-02] MEDS ORDERED: Lidocaine 2 gm/D5W 500 ml 500 ML IVPB SCH (22:00)
[2021-09-02] MEDS: HumaLOG 300 UNITS/3 ML VIAL SC PRN (22:01)
[2021-09-02] MEDS: Lantus 1000 UNITS/10 ML VIAL SC SCH (22:01)
[2021-09-02 22:48] LABS: Anion Gap 16 mmol/L (10-20); BUN (Urea Nitrogen) 44 mg/dL (8.4-25.7); Calc. Creatinine Clearance 20 mL/min (70-130); Calcium 8.6 mg/dL (7.8-10.44); Carbon Dioxide 30 mmol/L (22-29); Chloride 96 mmol/L (98-107); Glucose 333 mg/dL (70-105); Sodium 138 mmol/L (136-145)
[2021-09-02] MEDS: Heparin 25,000 units/D5W 500 ML IVPB SCH (22:51)
[2021-09-03 05:56] LABS: ALT (SGPT) 52 U/L (8-55); AST (SGOT) 67 U/L (5-34); Albumin 3.6 g/dL (3.5-5.0); Alkaline Phosphatase 55 U/L (40-110); Anion Gap 14 mmol/L (10-20); BUN (Urea Nitrogen) 54 mg/dL (8.4-25.7); Bilirubin, Total 0.5 mg/dL (0.2-1.2); CRP (Inflammatory) 1.77 mg/dL (= or < 0.5); Calc. Creatinine Clearance 19 mL/min (70-130); Calcium 8.8 mg/dL (7.8-10.44); Carbon Dioxide 32 mmol/L (22-29); Chloride 97 mmol/L (98-107); Globulin 3.1 g/dL (2.4-3.5); Glucose 173 mg/dL (70-105); Magnesium 2.4 mg/dL (1.6-2.6); Potassium 3.9 mmol/L (3.5-5.1); Protein, Total 6.7 g/dL (6.0-8.3); Sodium 139 mmol/L (136-145)
[2021-09-03 07:32] LABS: #Monocytes 1.3 10x3/uL (0.0-1.1); %Basophils 0.1 % (0.0-2.0); %Monocytes 12.9 % (0.0-10.0); %Neutrophils 79.2 % (40.0-75.0); Hemoglobin 10.8 g/dL (13.5-17.5); Mean Corpuscular HGB CONC 32.8 g/dL (32.0-36.0); Mean Corpuscular Hemoglobin 30.7 pg (27.0-33.0); Mean Corpuscular Volume 93.5 fl (81.2-95.1); Mean Platelet Volume 11.7 fl (7.4-10.4); Platelet Count 196 10x3/uL (150-450); RBC Distribution Width 14.4 % (11.5-14.5); Red Blood Cell (RBC) Count 3.52 10x6/uL (4.32-5.72)
[2021-09-03] MEDS: Aspirin 81 mg Enteric Coated Tablet PO SCH (09:34)
[2021-09-03] MEDS: Clopidogrel Bisulfate 75 MG TAB PO SCH (09:34)
[2021-09-03] MEDS: Ascorbic Acid 500 mg Chewable Tablet PO SCH (09:34)
[2021-09-03] MEDS: Cholecalciferol 1,000 UNITS (25 MCG) TAB PO SCH (09:34)
[2021-09-03] MEDS: Amiodarone 200 MG TAB PO SCH (09:34)
[2021-09-03] MEDS: Famotidine 20 MG TAB PO SCH (09:34)
[2021-09-03] MEDS: Zinc Sulfate 220 MG CAP PO SCH (09:35)
[2021-09-03] MEDS: Dexamethasone 4 mg/ml Vial SLOW IVP SCH (09:35)
[2021-09-03] MEDS: Furosemide 100 MG/10 ML VIAL SLOW IVP SCH (09:35)
[2021-09-03] MEDS: Sevelamer Carbonate 800 MG TAB PO SCH ×2 (09:38→16:13)
[2021-09-03] MEDS: Carvedilol 3.125 MG TAB PO SCH ×2 (09:38→16:14)
[2021-09-03] MEDS: Gabapentin 100 MG CAP PO SCH (10:10)
[2021-09-03] MEDS: Fenofibrate Nanocrystallized 145 MG TAB PO SCH (10:10)
[2021-09-03] MEDS ORDERED: Amiodarone 200 MG TAB PO SCH ×2 (12:45→21:00)
[2021-09-03] MEDS: HumaLOG 300 UNITS/3 ML VIAL SC PRN ×2 (13:17→16:08)
[2021-09-03] MEDS: Heparin 10,000 UNITS/ 10 ML VIAL SLOW IVP SCH (15:58)
[2021-09-03] MEDS ORDERED: EPINEPHrine 1 MG/ML AMP ONE (18:09)
[2021-09-03] MEDS ORDERED: EPINEPHrine 4 MG in Dextrose 5% in Water 250 ML IVPB SCH (18:15)
[2021-09-03 21:10] LABS: Actual Bicarbonate (HCO3a) 25.4 mEq/L (22-28); Base Excess (BEa) 1.7 mEq/L (-2.0 to +3.0); CO2 Tension 36.3 mmHg (35.0-45.0); Calcium, Ionized (arterial) 1.12 mmol/L (1.12-1.30); Carboxyhemoglobin (COHb) 0.3 gm% (0.0-3.0); O2 Tension (PaO2), arterial 215.8 mmHg (> 80.0); Puncture Site RBA; pH, Arterial 7.46 (7.35-7.45)
[2021-09-03 21:13] LABS: ALV-art Gradient 166.625 mmHg (0-20)
[2021-09-03 21:22] LABS: #Monocytes 1.6 10x3/uL (0.0-1.1); #Neutrophils 10.8 10x3/uL (1.5-8.4); %Basophils 0.1 % (0.0-2.0); %Monocytes 11.5 % (0.0-10.0); %Neutrophils 80.1 % (40.0-75.0); Mean Corpuscular HGB CONC 33.3 g/dL (32.0-36.0); Mean Corpuscular Hemoglobin 31.1 pg (27.0-33.0); Mean Corpuscular Volume 93.3 fl (81.2-95.1); Mean Platelet Volume 11.9 fl (7.4-10.4); Platelet Count 205 10x3/uL (150-450); RBC Distribution Width 14.4 % (11.5-14.5); Red Blood Cell (RBC) Count 3.86 10x6/uL (4.32-5.72); White Blood Cell (WBC) Count 13.5 10x3/uL (3.5-10.5)
[2021-09-03] MEDS: Atorvastatin Calcium 40 MG TAB PO SCH (21:30)
[2021-09-03] MEDS: Lantus 1000 UNITS/10 ML VIAL SC SCH ×2 (21:30→21:36)
[2021-09-03 21:40] LABS: Anion Gap 21 mmol/L (10-20); BUN (Urea Nitrogen) 70 mg/dL (8.4-25.7); Calc. Creatinine Clearance 17 mL/min (70-130); Carbon Dioxide 24 mmol/L (22-29); Chloride 95 mmol/L (98-107); Glucose 312 mg/dL (70-105); Magnesium 3.4 mg/dL (1.6-2.6); Potassium 4.1 mmol/L (3.5-5.1); Sodium 136 mmol/L (136-145)
[2021-09-03 22:27] VITALS: BP 140/67; TEMP 98.7
[2021-09-03] MEDS ORDERED: Midazolam HCl 2 mg/2 ml Vial SLOW IVP PRN (23:00)
[2021-09-03] MEDS ORDERED: levETIRAcetam in NS 1,000 MG in Premix Bag 1 BAG IVPB SCH (23:00)
[2021-09-03] MEDS ORDERED: Fentanyl 100 MCG/2 ML VIAL SLOW IVP SCH (23:15)
[2021-09-04] MEDS ORDERED: levETIRAcetam 500 MG in Sodium Chloride 0.9% 100 ML IVPB SCH (11:00)
[2021-09-04 18:16] LABS: Actual Bicarbonate (HCO3a) 22.2 mEq/L (22-28); Base Excess (BEa) -1.6 mEq/L (-2.0 to +3.0); CO2 Tension 34.6 mmHg (35.0-45.0); Carboxyhemoglobin (COHb) 0.3 gm% (0.0-3.0); Hemoglobin (Hb) 12.4 g/dL (14.0-18.0); O2 Tension (PaO2), arterial 446.5 mmHg (> 80.0); Potassium - ABG Lab 4.3 mmol/L (3.70-5.30); Puncture Site LFA; pH, Arterial 7.43 (7.35-7.45)
== END 2021-09-03 23:50 | disposition expired | DRG 208 ==
LOC: CSHERS 20:03 → CSHERHOLD 08-31 02:56 → CSHTELE 08-31 16:20 → CSHICU 09-02 23:13
PROVIDERS: ADMIT Family Medicine; ATTEND Hospitalist
PROC: 8E0ZXY6 Isolation (ICD-10-PCS; principal; 2021-08-31)
PROC: 3E0333Z Introduction of Anti-inflammatory into Peripheral Vein, Percutaneous Approach (ICD-10-PCS; 2021-08-31)
PROC: 5A1D70Z Performance of Urinary Filtration, Intermittent, Less than 6 Hours Per Day (ICD-10-PCS; 2021-09-02)
PROC: 5A1935Z Respiratory Ventilation, Less than 24 Consecutive Hours (ICD-10-PCS; 2021-09-03)
PROC: 0BH17EZ Insertion of Endotracheal Airway into Trachea, Via Natural or Artificial Opening (ICD-10-PCS; 2021-09-03)
PROC: 5A12012 Performance of Cardiac Output, Single, Manual (ICD-10-PCS; 2021-09-03)
PROC: 3E033XZ Introduction of Vasopressor into Peripheral Vein, Percutaneous Approach (ICD-10-PCS; 2021-09-03)
DX: U07.1 COVID-19 (principal); I21.4 Non-ST elevation (NSTEMI) myocardial infarction; N18.6 End stage renal disease; J12.82 Pneumonia due to coronavirus disease 2019; J96.01 Acute respiratory failure with hypoxia; I50.42 Chronic combined systolic (congestive) and diastolic (congestive) heart failure; I13.2 Hypertensive heart and chronic kidney disease with heart failure and with stage 5 chronic kidney disease, or end stage renal disease; I47.2 Ventricular tachycardia; Z66 Do not resuscitate; E11.22 Type 2 diabetes mellitus with diabetic chronic kidney disease; E11.42 Type 2 diabetes mellitus with diabetic polyneuropathy; I48.0 Paroxysmal atrial fibrillation; E78.5 Hyperlipidemia, unspecified; E11.51 Type 2 diabetes mellitus with diabetic peripheral angiopathy without gangrene; G40.909 Epilepsy, unspecified, not intractable, without status epilepticus; I25.10 Atherosclerotic heart disease of native coronary artery without angina pectoris; I44.0 Atrioventricular block, first degree; I45.81 Long QT syndrome; I46.9 Cardiac arrest, cause unspecified; I49.01 Ventricular fibrillation; I49.3 Ventricular premature depolarization; E11.21 Type 2 diabetes mellitus with diabetic nephropathy; E05.90 Thyrotoxicosis, unspecified without thyrotoxic crisis or storm; D63.1 Anemia in chronic kidney disease; Z99.2 Dependence on renal dialysis; Z79.4 Long term (current) use of insulin; Z89.511 Acquired absence of right leg below knee; Z88.1 Allergy status to other antibiotic agents; Z79.899 Other long term (current) drug therapy; Z79.891 Long term (current) use of opiate analgesic; Z95.1 Presence of aortocoronary bypass graft; Z95.810 Presence of automatic (implantable) cardiac defibrillator; Z87.891 Personal history of nicotine dependence; Z82.49 Family history of ischemic heart disease and other diseases of the circulatory system; Z83.3 Family history of diabetes mellitus; Z83.438 Family history of other disorder of lipoprotein metabolism and other lipidemia; Z86.73 Personal history of transient ischemic attack (TIA), and cerebral infarction without residual deficits; Z79.01 Long term (current) use of anticoagulants
CPT/HCPCS: 36415; 36416; 36600; 71045; 76999; 80048; 80053; 81003; 81015; 82550; 82553; 82805; 83735; 84100; 84439; 84443; 84484; 85025; 85730; 86140; 90935; 93005; 93010; 93306; 94002; 94760; 94799; G0257; J0171; J0282; J1100; J1644; J1815; J1940; J1953; J2001; J3010; J3475; U0002